=== PATIENT | male | born 1960 | race African-American/Black ===

== ENCOUNTER 2016-07-22 04:55 | Emergency (ER) | payer MEDICAID ==
[~2016-07-22] VITALS: Ht 177.8 cm; Wt 95.3 kg
[2016-07-22] MEDS ORDERED: FAMOTIDINE PF 20 MG/2 ML VIAL IVP ONE (05:00)
[2016-07-22] MEDS ORDERED: ONDANSETRON HCL 4 MG/2 ML VIAL IVP ONE (05:00)
[2016-07-22] MEDS ORDERED: KETOROLAC TROMETHAMINE 30 MG VIAL IVP ONE (05:00)
--- NOTE | 2016-07-22 05:00 | NUR ---
Patient to ER bed 06 to gown for evaluation. Side rails up. Report given to mickey.
--- NOTE | 2016-07-22 05:02 | NUR ---
ER Dr. Rubio at bedside examining patient.
[2016-07-22 05:05] VITALS: BP_SYST 116
--- NOTE | 2016-07-22 05:05 | NUR ---
pt AAOx4 c/o sudden onset epigastric pain 10/ x2 hours that awoke him from sleep. pt reports 1 episode of vomiting. pt reports burping helps relieve pain. Pt reports drinking pepto bismol with no pain relief. Pt admits to drinking alcohol today. aware.
[2016-07-22] MEDS ORDERED: MAG HYDROX/AL HYDROX/SIMETH 30 ML, LIDOCAINE VISCOUS 2% 15ML (PO) 10 ML, BELLADONNA ALK... PO ONE ×3 (05:15)
[2016-07-22] MEDS ORDERED: MORPHINE 2 MG/ML INJ. SYRINGE IVP ONE (05:15)
[2016-07-22] MEDS ORDERED: KETOROLAC TROMETHAMINE 15 MG VIAL ONE (05:17)
--- NOTE | 2016-07-22 05:25 | NUR ---
Pt noted to move around and removed IV catheter by himself, minimal bleeding noted. Catheter in tact. Dianneg applied
[2016-07-22 05:27] LABS: BASOPHILS % (AUTO) 0.5 % (0.0-2.0); EOSINOPHILS # (AUTO) 0.3 K/uL (0.0-0.4); EOSINOPHILS % (AUTO) 3.2 % (0.0-4.0); HEMATOCRIT 46.5 % (36-54); HEMOGLOBIN 15.3 g/dL (14.0-18.0); LYMPHOCYTES # (AUTO) 4.4 K/uL (1.0-5.5); LYMPHOCYTES % (AUTO) 43.3 % (20.5-51.5); MEAN CORPUSCULAR HEMOGLOBIN 30 pg (27-31); MEAN CORPUSCULAR HGB CONC 33 % (32-36); MEAN CORPUSCULAR VOLUME 91 fL (79.0-98.0); MONOCYTES # (AUTO) 0.9 K/uL (0.0-1.0); MONOCYTES % (AUTO) 9.4 % (1.7-9.3); NEUTROPHILS # (AUTO) 4.3 K/uL (1.8-7.7); NEUTROPHILS % (AUTO) 43.6 % (40.0-70.0); PLATELET COUNT (AUTO) 299 K/uL (130-430); RED BLOOD CELL COUNT(AUTO) 5.11 MIL/uL (4.2-6.2); RED CELL DISTRIBUTION WIDTH 13.2 % (9.0-15.0); WHITE BLOOD COUNT (AUTO) 9.9 K/uL (4.8-10.8)
[2016-07-22] MEDS ORDERED: MAG-AL HYDROX/SIMETH 30 ML UDC ONE (05:27)
[2016-07-22] MEDS ORDERED: LIDOCAINE VISCOUS 2%, 15 ML UDC ONE (05:27)
[2016-07-22 05:37] LABS: CALCIUM 8.8 mg/dL (8.4-11.0); CREATININE 1.53 mg/dL (0.55-1.30); POTASSIUM 4.4 mmol/L (3.5-5.1)
[2016-07-22 05:42] LABS: ALBUMIN 3.7 g/dL (3.4-4.8); TOTAL BILIRUBIN 0.5 mg/dL (0.0-1.0)
--- NOTE | 2016-07-22 06:10 | NUR ---
Pt c/o pain coming back, and pt requests for pain control. acknowledged, stated to give morphine 4mg IV.
--- NOTE | 2016-07-22 06:15 | NUR ---
Pt medicated with morphine 4mg IV. Pt stated pain is relieved. Pt noted to thank for treating his pain.
--- NOTE | 2016-07-22 06:20 | NUR ---
Miss Ally Morejon, stated that she was the neighbor of the pt, pt called her at 0600 AM in the morning to pick pt up. Ally Morejon stated " He called me 6 oclock in the morning, I'm not a morning person. I'm already pissed." Ally Morejon and pt were instructed to follow up with PCP for gall stone, pt acknowledged understanding. Ally Morejon came to nursing station and threatened staffs and , that she will call the board on staffs. Pt repeated " I'm already pissed and tired coming here 6 o'clock to pick him up, I'm not his family, I'm a neighbor". Ally was assured that she needs to control her tone, and cannot threaten any physician or staff. Ally was asked to wait in the lobby. Pt said he apologized for any inconvenience.
[2016-07-22] MEDS ORDERED: MORPHINE 4 MG/ML INJ. SYRINGE IVP ONE (06:30)
--- NOTE | 2016-07-22 06:30 | NUR ---
Pt apologized for Ally Morejon behavior. Pt acknowledged understanding for treatment and will follow up with PCP
[2016-07-22 06:40] VITALS: BP_SYST 110
--- NOTE | 2016-07-22 06:40 | NUR ---
Patient given written and verbal discharge instructions and verbalizes understanding. ER MD Rubio discussed with patient the results and treatment provided. Patient in stable condition. ID arm band removed. IV catheter removed intact and dressing applied, no active bleeding. Rx of ursodiol, motrin, morphine, and zofran given. Patient educated on pain management and to follow up with PMD. Pain Scale 0/10 Opportunity for questions provided and answered.
== END 2016-07-22 06:40 | disposition home or self-care (01) ==
LOC: SED 04:55
DX: K80.50 Calculus of bile duct without cholangitis or cholecystitis without obstruction (principal)
CPT/HCPCS: 36415; 74176; 80053; 82150; 83690; 85025; 93005; 96374; 96375; 96376; 99285; J1885; J2001; J2270 ×2; J2405; J3490

== ENCOUNTER 2019-05-14 16:46 | Emergency (ER) | payer MEDICAID ==
[~2019-05-14] VITALS: Ht 177.8 cm; Wt 99.8 kg
[2019-05-14 17:11] VITALS: BP_SYST 116
--- NOTE | 2019-05-14 19:00 | NUR ---
Patient to ER bed 8 to gown for evaluation. Side rails up.
--- NOTE | 2019-05-14 19:10 | NUR ---
ER at bedside examining patient.
[2019-05-14] MEDS ORDERED: IBUPROFEN 800 MG TABLET PO ONE (19:15)
--- NOTE | 2019-05-14 19:23 | NUR ---
Pt refuses order for Motrin. Pt states that he took Motrin 2 hours ago.
--- NOTE | 2019-05-14 19:24 | NUR ---
Patient given written and verbal discharge instructions and verbalizes understanding. ER MD discussed with patient the results and treatment provided. Patient in stable condition. ID arm band removed. Rx of Naprosyn and Flexeril given. Patient educated on pain management and to follow up with PMD. Pain Scale 4/10. Opportunity for questions provided and answered. Medication side effect fact sheet provided.
[2019-05-14 19:25] VITALS: BP_SYST 122
== END 2019-05-14 19:24 | disposition home or self-care (01) ==
LOC: SED 16:46
DX: S33.9XXA Sprain of unspecified parts of lumbar spine and pelvis, initial encounter (principal); S80.01XA Contusion of right knee, initial encounter; Y04.0XXA Assault by unarmed brawl or fight, initial encounter; Y93.89 Activity, other specified; Y92.89 Other specified places as the place of occurrence of the external cause; Y99.8 Other external cause status
CPT/HCPCS: 72110; 73564; 99283